=== PATIENT | female | born 1970 | race Caucasian/White ===

== ENCOUNTER → 2017-01-19 | Outpatient (CLI) | payer BC ==
--- NOTE | 2017-01-19 14:44 | MAMMOGRAPHY REPORT ---
UNILATERAL RIGHT DIGITAL DIAGNOSTIC MAMMOGRAM TOMOSYNTHESIS WITH CAD AND TARGETED RIGHT ULTRASOUND: CLINICAL HISTORY: Status post aspiration of a right 2:30 breast cyst July 2016, here for short in terval follow-up. The patient also reports that she felt a new possible lump in the right breast las t night during a clinical breast exam. TECHNIQUE: Breast tomosynthesis in addition to standard 2D mammography was performed. Current study was also evaluated with a Computer Aided Detection (CAD) system. Right CC and MLO 2-D and tomosynthe sis images were obtained. COMPARISON: Comparison is made to exams dated: 07/21/2016 mammogram, 07/11/2016 mammogram, 07/11/2016 ultrasound, 07/02/2015 mammogram, 05/14/2013 mammogram, and 01/13/2016 ultrasound - [facility]. BREAST COMPOSITION: The tissue of the right breast is heterogeneously dense, which may obscure small masses. FINDINGS: A triangle marker sanchez the site of the palpable lump in the right upper outer quadrant. No suspicious masses or other suspicious mammographic abnormalities are noted in this region. There is an oval, gently lobulated circumscribed 6.6 mm mass seen within the right upper inner quadrant; th is was previously aspirated to completion July 2016 and was shown to represent a cyst. Given the visualization on today's exam, it is consistent with reaccumulation of the cyst. The mass appears s lightly smaller in size compared to the 07/11/2016 pre-aspiration exam where the mass measured 8.5 mm . The remainder of the right breast is stable compared to prior exams, without suspicious masses, ca lcifications, or areas of architectural distortion noted. Targeted ultrasound was performed of the area of the palpable lump pointed out by the patient, in the right breast at 9:30, approximately 2 cm from the nipple. No suspicious masses or other suspicious sonographic abnormalities are evident. In the region of the palpable lump there is a small round cir cumscribed hypoechoic 3 x 3 x 3 mm mass, which is likely incidentally noted. Another round hypoechoi c circumscribed 2 x 2 mm mass is seen within the right breast at 10:00, 3 cm from the nipple. Adjace nt to this is another oval hypoechoic 4 x 2 mm mass. These are probably benign and likely represent complicated cysts. Targeted ultrasound was performed of the area of the previously aspirated cyst. In the right breast at 2:30, 4 cm from the nipple, there is a hypoechoic lobulated 5 x 4 x 4 mm mass. This previously measured 8 x 6 x 4 mm on the June 2016 pre-aspiration exam and is likely smalle r in size. This correlates with the mammographic mass. Given that it aspirated and given the benign morphology, it is probably benign and likely represents a cyst. IMPRESSION: ACR-BI-RADS CATEGORY 3: PROBABLY BENIGN, TARGETED ULTRASOUND ACR-BI-RADS CATEGORY 3: PRO BABLY BENIGN 1. No suspicious mammographic or sonographic abnormalities at the site of the palpable lump in the r ight breast at 9:30. A few small incidental hypoechoic circumscribed masses are seen within the righ t 9:30 to 10:00 breast on ultrasound, which are probably benign and likely represent complicated cyst s. Recommend follow-up diagnostic tomosynthesis mammograms of the right breast and ultrasound in 6 m ont to confirm stability. Routine mammography of the left breast will be due at that time. 2. The previously aspirated mass in the right breast at 2:30 is evident on the current exam, consist ent with cyst reaccumulation. This can be reevaluated at the time of the short interval follow-up. The patient has been verbally notified of the results. Approximately 10% of breast cancers are not detected with mammography. A negative mammographic report should not delay biopsy if a clinically suggestive mass is present. Maria Luz Bui M.D. ah/:01/19/2017 09:35:50 Set Up Machinist: Brenda Cruz RT(R)(M), [facility] letter sent: Follow Up Recommended 3 BI-RADS Code: ACR-BI-RADS Category 3: Probably Benign Ultrasound BI-RADS: ACR-BI-RADS Category 3: Pr obably Benign
== END | disposition home or self-care (01) ==
LOC: C.MAMM 07:59
PROVIDERS: ATTEND Obstetrics & Gynecology
DX: N63 Unspecified lump in breast (principal)

== ENCOUNTER → 2017-05-31 | Outpatient (CLI) | payer BC | END | disposition home or self-care (01) | LOC: C.PAPS 14:18 | PROVIDERS: ATTEND Obstetrics & Gynecology | DX: Z01.411 Encounter for gynecological examination (general) (routine) with abnormal findings (principal); R87.610 Atypical squamous cells of undetermined significance on cytologic smear of cervix (ASC-US) ==

== ENCOUNTER → 2017-07-21 | Outpatient (CLI) | payer BC ==
--- NOTE | 2017-07-21 13:38 | MAMMOGRAPHY REPORT ---
BILATERAL DIGITAL DIAGNOSTIC MAMMOGRAM TOMOSYNTHESIS WITH CAD AND TARGETED RIGHT ULTRASOUND: 7 CLINICAL HISTORY: Six-month follow-up of right breast masses. The patient reports no current complai nts. TECHNIQUE: Breast tomosynthesis in addition to standard 2D mammography was performed. Current study was also evaluated with a Computer Aided Detection (CAD) system. Bilateral CC and MLO 2-D and tomosy nthesis images were obtained. COMPARISON: Comparison is made to exams dated: 01/19/2017 ultrasound, 01/19/2017 mammogram, 07/21/2016 ma mmogram, 07/11/2016 mammogram, 07/11/2016 ultrasound, and 07/02/2015 mammogram - [facility]. BREAST COMPOSITION: The tissue of both breasts is heterogeneously dense, which may obscure small mas ses. FINDINGS: There are no suspicious masses, calcifications, or areas of architectural distortion seen w ithin either breast. The previously seen small circumscribed mass within the right medial breast on the cc view is decreased in size mammographically; this was previously aspirated confirming a cystic nature although it did reaccumulate after aspiration. Small bilateral benign-appearing masses are ag ain noted; findings are considered benign given the multiplicity and bilaterality and likely represen t small cysts. Targeted ultrasound was performed of the area of the previously seen right breast masses for which fo llow-up was recommended. In the right breast at 2:30, 4 cm from the nipple, there is a hypoechoic ma ss which is visually decreased in size compared to the January 2017 exam, currently measuring 4 x 3 x 4 mm, previously measuring 4 x 5 x 4 mm. This also corresponds with the mammographic mass which is dec reased in size. Findings are benign given the interval decrease in size and compatible with a benign cyst. In the right breast at 9:30, 2 cm from the nipple, again noted is a round nearly anechoic cir cumscribed benign appearing mass which measures 3 x 3 x 3 mm and is not significantly changed and lik kyle represents a complicated cyst. An oval anechoic benign 4 mm simple cyst seen within the right br east at 9:00, 2 cm from the nipple. A lobulated anechoic benign cyst measuring 2 x 4 mm is also seen within the right breast at 10:00, 3 cm from the nipple. In the right breast at 10:00, approximately 4 cm from the nipple, there is a round circumscribed benign-appearing 2 x 2 mm mass which is unchang ed. Adjacent to this is an oval hypoechoic circumscribed benign-appearing 4 x 4 mm mass which is also unchanged. An anechoic benign cyst with a thin internal septation measuring 3 x 4 mm is also seen w ithin the right breast at 10:00, 5 cm from the nipple. Adjacent to this is an oval anechoic circumsc ribed benign simple cyst measuring 2 mm. Given the multiplicity of the findings and given the circum scribed benign morphology, the masses are considered benign and likely represent cysts. IMPRESSION: ACR BI-RADS CATEGORY 2: BENIGN, TARGETED ULTRASOUND ACR BI-RADS CATEGORY 2: BENIGN Small benign-appearing right breast masses are stable compared to the prior exam, and are considered benign and likely represent cysts. There is no mammographic or targeted sonographic evidence of vish gnancy. A 1 year screening mammogram is recommended. The patient has been verbally notified of the r esults. Approximately 10% of breast cancers are not detected with mammography. A negative mammographic report should not delay biopsy if a clinically suggestive mass is present. Maria Luz Bui M.D. ah/:07/21/2017 08:31:34 Knot Borer: Nithya ZAYAS(Nadia)(M), [facility] letter sent: Normal 1/2 BI-RADS Code: ACR BI-RADS Category 2: Benign Ultrasound BI-RADS: ACR BI-RADS Category 2: Benign
== END | disposition home or self-care (01) ==
LOC: C.MAMM 07:56
PROVIDERS: ATTEND Obstetrics & Gynecology
DX: N63.0 Unspecified lump in unspecified breast (principal)

== ENCOUNTER → 2018-01-01 | Outpatient (CLI) | payer OTHER | END | disposition home or self-care (01) | LOC: C.PATHSPEC 17:36 | PROVIDERS: ATTEND Obstetrics & Gynecology | DX: N92.3 Ovulation bleeding (principal) ==

== ENCOUNTER 2022-10-06 22:43 | Observation (INO) ==
[2022-10-06] MEDS ORDERED: fentaNYL citrate 100 MCG/2 ML VIAL IV STA (23:02)
[2022-10-06] MEDS ORDERED: SODIUM CHLORIDE 0.9% 1000ML 1,000 ML IV ONE (23:02)
[2022-10-06] MEDS ORDERED: ONDANSETRON INJ 2 MG/ML 2 ML VIAL IV STA (23:02)
--- NOTE | 2022-10-06 23:09 | Emergency Department Note ---
History of Present Illness General Chief complaint: Chest Pain Stated complaint: CHEST PAIN,ABDOMINAL PAIN Time Seen by Provider: 10/06/22 22:52 History of Present Illness Maximum Pain Intensity: 9 51-year-old female presents emergency department at 7 PM she had sudden onset of right upper quadrant abdominal pain that radiated across her abdomen into her back. Patient is a diabetic. Patient denies nausea vomiting denies substernal chest pressure or shortness of breath. Patient denies diarrhea. There are no other mitigating or alleviating factors. Patient states that the pain is moderate located in the midepigastrium and right upper quadrant. Home Medications Medication Instructions Recorded Confirmed Type glycopyrrolate 1 mg tablet 1 mg PO QAM 08/19/19 10/07/22 History albuterol sulfate 90 mcg/actuation 1 puff inhalation QID PRN Wheezing 01/28/21 10/07/22 History aerosol inhaler atorvastatin 10 mg tablet 10 mg PO HS 02/18/22 10/07/22 History losartan 25 mg tablet 25 mg PO HS 02/18/22 10/07/22 History metformin 500 mg tablet 500 mg PO BIDM 10/06/22 10/07/22 History famotidine 20 mg tablet 20 mg PO AMHS 10/07/22 10/07/22 History Allergies Allergy/AdvReac Type Severity Reaction Status Date / Time bee venom protein (honey bee) Allergy Severe Anaphylaxis Verified 10/07/22 02:02 adhesive Allergy Intermediate REDNESS,ITC Verified 10/07/22 02:02 ENRRIQUE Sulfa (Sulfonamide Allergy Intermediate HIVES Verified 10/07/22 02:02 Antibiotics) Past Med/Surg History Medical History Asthma MILD> RARE INH USE Dysplastic nevus Intermenstrual spotting Menorrhagia Obesity Recurrent nevus of back Surgical History History of endometrial ablation S/P skin biopsy BENIGN Family History Father Hypertension Mother Diabetes Grandmother (Paternal) Diabetes Other Asthma Social History Smoking Status: Never smoker Second Hand Exposure: No; Hx Alcohol Use: Yes Alcohol type: hard liquor Hx Substance Use: No Preferred Language: Kazakh Communication Ability: Effective Hotel Assistant Manager Required: No Beliefs That Will Affect Care: None Current Living Situation: Spouse Feels Safe at Home: Yes Assistive Devices: Contacts and Glasses Review of Systems A total of 10 systems reviewed and were otherwise negative Constitutional: no fever Physical Exam Vital Signs Vital Signs - 24 hr 10/06/22 22:46 10/06/22 23:02 Temperature 36 C L Temperature Source Temporal Artery Scan Pulse Rate 73 74 Respiratory Rate 18 Respiratory Effort / Characteristics Non-Labored Spontaneous Respiratory Depth Normal Blood Pressure 180/109 H Blood Pressure Mean 132 Blood Pressure Position Sitting Pulse Oximetry 97 Oxygen Delivery Method Room Air Sepsis Recent Fever Within 48 Hours No Sepsis New/Unexplained Change in Mental Status No Sepsis Action Taken by Nursing No Action Required GENERAL: Patient is awake alert in no acute distress patient is resting comfortably and showing no signs of anxiety EYES: The conjunctivae are clear. The pupils are round and reactive. EARS, NOSE, MOUTH AND THROAT: The nose is without any evidence of any deformity. Mucous membranes are moist. Tongue is midline. NECK: The neck is nontender and supple. RESPIRATORY: Normal respiratory effort is noted there is no evidence of wheezing rhonchi or rales CARDIOVASCULAR: Regular rate and rhythm noted there no murmurs rubs or gallops normal S1 normal S2. GASTROINTESTINAL: The abdomen is soft. Abdomen is tender in right upper quadrant midepigastrium there is no rebound rigidity guarding there is no abnormal aortic pulsations or masses PELVIS: The Pelvis is stable. No tenderness to palpation is noted. BACK: No midline tenderness or or step-off noted range of motion in flexion extension as well as rotation no signs of muscle spasm noted MUSCULOSKELETAL/EXTREMITIES: There is no evidence of gross deformity full range of motion is noted in the hips and shoulders. SKIN: There is no obvious evidence of any rash. There are no petechiae, pallor or cyanosis noted. NEUROLOGIC: Patient is awake alert and oriented x3 strength is symmetric Course Reevaluation(s) Reevaluation #1: Complains of some upper quadrant abdominal pain Time: 02:00 Consultations Consultation #1: Case was discussed with Wesley Hannon from the surgical service Time: 02:00 Consultation #2: Case discussed with Dr. Villegas for admission Administered Medications Discontinued Medications Fentanyl Citrate (Fentanyl Citrate 100 Mcg/2 Ml Vial) 25 mcg IV NOW STA Stop: 10/06/22 23:03 Last Admin: 10/06/22 23:14 Dose: 25 mcg Documented By: MYRNA Sodium Chloride (Nss 1000ml) 1,000 mls @ 999 mls/hr IV .Q1H1M ONE Stop: 10/07/22 00:02 Last Infusion: 10/07/22 00:36 Dose: 999 mls/hr Documented By: Admin: 10/06/22 23:14 Dose: 999 mls/hr Documented By: MYRNA Ondansetron HCl (Ondansetron Inj 2 Mg/Ml 2 Ml Vial) 4 mg IV NOW STA Stop: 10/06/22 23:03 Last Admin: 10/06/22 23:14 Dose: 4 mg Documented By: MYRNA Medical Decision Making Medical Records Attestation: I reviewed the patient's medical records. Home Medications Current Medication List: was personally reviewed by me Laboratory Data Attestation: I reviewed the patient's lab results. AST is 66 10/06/22 23:00 10/06/22 23:00 Lab Results 10/06/22 10/06/22 10/06/22 Range/Units 23:00 23:00 23:00 WBC 9.15 (4.8-10.8) K/ul RBC 5.64 H (4.20-5.40) M/uL Hgb 16.1 H (12.0-16.0) g/dl Hct 46.8 (37.0-47.0) % MCV 83.0 (80.0-100.0) fL MCH 28.5 (25.0-34.0) pg MCHC 34.4 (32.0-36.0) g/dL RDW Std Deviation 38.4 (36.4-46.3) fL RDW Coeff of Nela 12.6 (11.5-14.5) % Plt Count 324 (130-400) K/uL MPV 9.9 (9.4-12.4) fL Immature Gran % (Auto) 0.1 % Neut % (Auto) 45.9 % Lymph % (Auto) 41.4 % [place] % (Auto) 9.0 % Eos % (Auto) 3.2 % Baso % (Auto) 0.4 % Neut # (Auto) 4.20 (1.40-6.50) K/uL Lymph # (Auto) 3.79 H (1.2-3.4) K/uL [place] # (Auto) 0.82 H (0.11-0.59) K/uL Eos # (Auto) 0.29 (0-0.50) K/uL Baso # (Auto) 0.04 (0-0.2) K/uL Immature Gran # (Auto) 0.01 (0.01-0.20) K/uL PT 10.2 (9.0-12.0) Seconds INR 1.0 (0.9-1.1) APTT 27.9 (21.0-31.0) Seconds PTT Ratio 1.0 Sodium 138 (136-145) mmol/L Potassium 3.9 (3.5-5.1) mmol/L Chloride 100 (98-107) mmol/L Carbon Dioxide 29 (21-32) mmol/L Anion Gap 9 (3-11) BUN 22 (6-23) mg/dl Creatinine 0.91 (0.6-1.2) mg/dl Est Cr Clr Drug Dosing 72.2 ml/min Est GFR ( Amer) 84.7 ml/min Est GFR (Non-Af Amer) 73.1 ml/min BUN/Creatinine Ratio 24.2 H (10-20) Glucose 97 (70-99(Fasting)) mg/dl Calcium 9.8 (8.5-10.1) mg/dl Total Bilirubin 1.1 H (0.2-1.0) mg/dl AST 66 H (13-39) U/L ALT 48 (7-52) U/L Alkaline Phosphatase 78 (34-104) U/L Troponin I High Sens 4.1 (0-14) pg/ml Total Protein 8.4 H (6.0-8.3) gm/dl Albumin 4.9 (3.4-5.0) gm/dl Globulin 3.5 (2.5-4.0) gm/dl Albumin/Globulin Ratio 1.4 (0.9-2) Lipase 48 (11-82) U/L Imaging Data Attestation: I personally reviewed and interpreted this imaging study as follows: My Impression: Chest x-ray interpreted by me negative for infiltrate normal mediastinum no pneumothorax Ultrasound reviewed by me and appreciate radiologist interpretation Radiologist's Impression: * SYDNEY DOBBINS (Female) : 70 Status: ER Date: 10/07/22 00:11 Room #: History: ruq and epigastric pain, chest pain, middle back pain Slices: 44 Priors: Tech: Jeannette Albarran @ [phone] Exams: US RUQ Contrast: Accession Numbers: [id number] Referring Physician: REFERRED SELF Preliminary Findings Only See Final Report For Complete Findings US RUQ: No visible gallstones. Thickened gallbladder wall (3.7 mm) and trace pericholecystic fluid. Unable to assess for sonographic Acosta's sign due to medicated state. Normal common duct, 4 mm. Hepatomegaly and coarse liver echotexture, probably steatosis. 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 Unremarkable visualized pancreas. Radiologist: Celena Crow MD Study ready at 00:15 and initial results transmitted at 01:472:05 AM10 days left ECG Data Attestation: I personally reviewed and interpreted this ECG as follows: Additional Comments: EKG interpreted by me normal sinus rhythm rate of 65 poor R wave progression the precordium no obvious ST segment elevation or depression left axis deviation is present MDM Narrative Medical decision making differential diagnosis includes miliary colic cholecystitis cholelithiasis pancreatitis acute coronary syndrome Plan is to check labs, EKG, ultrasound right upper quadrant, give IV pain medicine Impression & Plan Abdominal pain, acute, right upper quadrant, Acalculous cholecystitis Discharge Plan Visit Data Chief Complaint: Chest Pain Stated Complaint: CHEST PAIN,ABDOMINAL PAIN ED Provider: Camron Ortega Discharge Problem: Abdominal pain, acute, right upper quadrant, Acalculous cholecystitis Patient Disposition: Admitted As Inpatient Forms Stand Alone Forms: My [facility] Prescriptions Prescriptions: No Action glycopyrrolate 1 mg tablet 1 mg PO QAM losartan 25 mg tablet 25 mg PO HS atorvastatin 10 mg tablet 10 mg PO HS albuterol sulfate 90 mcg/actuation Hfa Aerosol Inhaler 1 puff INHALATION QID PRN (Reason: Wheezing) metformin 500 mg tablet 500 mg PO BIDM famotidine 20 mg Tablet 20 mg PO AMHS Referrals Referrals: Cori Reaves MD [Primary Care Provider] -
[2022-10-06 23:32] LABS: Basophils # (auto) 0.04 K/uL (0-0.2); Basophils % (auto) 0.4 %; Eosinophils # (auto) 0.29 K/uL (0-0.50); Eosinophils % (auto) 3.2 %; Hematocrit (blood only) 46.8 % (37.0-47.0); Hemoglobin 16.1 g/dl (12.0-16.0); Immature Granulocytes # (auto) 0.01 K/uL (0.01-0.20); Immature Granulocytes % (auto) 0.1 %; Lymphocytes # (auto) 3.79 K/uL (1.2-3.4); Lymphocytes % (auto) 41.4 %; Mean Corpuscular Hemoglobin 28.5 pg (25.0-34.0); Mean Corpuscular Hgb Conc 34.4 g/dL (32.0-36.0); Mean Platelet Volume 9.9 fL (9.4-12.4); Monocytes # (auto) 0.82 K/uL (0.11-0.59); Neutrophils % (auto) 45.9 %; Platelet Count 324 K/uL (130-400); RDW Coefficient of Variation 12.6 % (11.5-14.5); RDW Standard Deviation 38.4 fL (36.4-46.3); Red Blood Count 5.64 M/uL (4.20-5.40); White Blood Count 9.15 K/ul (4.8-10.8)
[2022-10-06 23:46] LABS: Albumin Globulin Ratio 1.4 (0.9-2); Albumin Level 4.9 gm/dl (3.4-5.0); BUN Creatinine Ratio 24.2 (10-20); Bilirubin,Total 1.1 mg/dl (0.2-1.0); Calcium 9.8 mg/dl (8.5-10.1); Creatinine Clr Calc Pharmacy 72.2 ml/min; Est GFR (African American) 84.7 ml/min; Est GFR (Non-African American) 73.1 ml/min; Globulin 3.5 gm/dl (2.5-4.0); Potassium 3.9 mmol/L (3.5-5.1); Total Protein 8.4 gm/dl (6.0-8.3)
[2022-10-06 23:53] LABS: Troponin I High Sensitivity 4.1 pg/ml (0-14)
[2022-10-06 23:57] LABS: Partial Thromboplastin Time 27.9 Seconds (21.0-31.0); Prothrombin Time 10.2 Seconds (9.0-12.0)
--- NOTE | 2022-10-07 02:11 | History & Physical Report ---
Date of Service October 07, 2022 Assessment & Plan (1) Abdominal pain, acute, right upper quadrant: Plan: 51-year-old female with history of hypertension, hyperlipidemia, diabetes presenting with acute onset right upper quadrant pain following dinner this evening. No fever, chills, nausea, vomiting. Work-up thus far significant for mild elevation of total bilirubin = 1.1, mild elevation of AST = 66. Liver ultrasound as above with no visible gallstones. Thickened gallbladder wall at 3.7 mm and trace pericholecystic fluid. Common bile duct is normal measuring 4 mm. Troponin = negative at 4.1, EKG with no acute ischemic changes Differential diagnosis to include reflux, acalculous cholecystitis. Case has been discussed with surgical team. Admit to medical Keep patient n.p.o. Check HIDA scan in the morning Repeat LFTs in the morning We will hold off on additional pain medication for now as to not interfere with results of HIDA scan Colace and MiraLAX as needed for constipation Zofran as needed for nausea Empiric Zosyn 3.375 g IV every 8 hours Appreciate general surgery consultation Of note, patient is planning a trip to [place] with her family. They plan to leave next 10/12/2022. (2) Hypertension: Plan: Blood pressure elevated upon arrival in setting of acute pain. Now improved to 123/88. We will hold losartan 25 mg p.o. nightly in case of surgical intervention Continue to monitor blood pressure (3) Hyperlipidemia: Plan: Chronic. Stable. Continue atorvastatin 10 mg p.o. nightly (4) Diabetes: Plan: Patient on metformin 500 mg p.o. twice daily. Insulin sliding scale Goal blood sugar 110-140 Hold metformin for now F/E/NLR at 100 mL/h x 2 L, electrolytes within normal limitscontinue to monitor and replete as needed, n.p.o. for now Ppx:low risk for VTE, will hold on chemoprophylaxis for now. SCDs to bilateral lower extremities. Patient on Pepcid 20 mg p.o. twice dailywill change to IV for now Codefull per discussion with patient Dispositionadmit to medical History of Present Illness Chief Complaint: Right upper quadrant abdominal pain Primary Care Provider: Cori Reaves MD Katerine Avendaño is a pleasant 51-year-old female with history of hypertension, hyperlipidemia, diabetes and well-controlled asthma presenting with acute onset of right upper quadrant pain. Patient had just finished having pizza for dinner around 1900 when she developed sudden onset of right upper quadrant pain with radiation in the epigastrium and through to the back, bandlike across her abdomen. She reports the pain feeling like gas but more severe. She states she was unable to get comfortable. Tried to use a foam roller with no improvement. She did not have nausea or vomiting. No fevers, chills, rigors. No cough or shortness of breath. No history of prior right upper quadrant pain. Patient did have some loose stools earlier in the day but they have resolved. No sick contacts. No family members with similar symptoms In the ER she is afebrile, hypertensive at 180/109 otherwise hemodynamically stable. No respiratory distress. Adequate oxygenation on room air. During my encounter patient's abdominal pain resolved after receiving 25 mcg of IV fentanyl. Patient being seen by surgical team at bedside. ER course: Fentanyl 25 mcg IV Zofran 4 mg IV Allergies Allergy/AdvReac Type Severity Reaction Status Date / Time bee venom protein (honey bee) Allergy Severe Anaphylaxis Verified 10/07/22 02:02 adhesive Allergy Intermediate REDNESS,ITC Verified 10/07/22 02:02 ENRRIQUE Sulfa (Sulfonamide Allergy Intermediate HIVES Verified 10/07/22 02:02 Antibiotics) Home Medications Medication Instructions Recorded Confirmed Type glycopyrrolate 1 mg tablet 1 mg PO QAM 08/19/19 10/07/22 History albuterol sulfate 90 mcg/actuation 1 puff inhalation QID PRN Wheezing 01/28/21 10/07/22 History aerosol inhaler atorvastatin 10 mg tablet 10 mg PO HS 02/18/22 10/07/22 History losartan 25 mg tablet 25 mg PO HS 02/18/22 10/07/22 History metformin 500 mg tablet 500 mg PO BIDM 10/06/22 10/07/22 History famotidine 20 mg tablet 20 mg PO AMHS 10/07/22 10/07/22 History Past Med/Surg History Medical History (Updated 10/07/22 @ 02:48 by Kathy Villegas DO) Asthma MILD> RARE INH USE Diabetes Dysplastic nevus Hyperlipidemia Hypertension Intermenstrual spotting Menorrhagia Obesity Recurrent nevus of back Surgical History History of endometrial ablation S/P skin biopsy BENIGN Family History Father Hypertension Mother Diabetes Grandmother (Paternal) Diabetes Other Asthma Social History Smoking Status: Never smoker Second Hand Exposure: No; Hx Alcohol Use: Yes Alcohol type: hard liquor Hx Substance Use: No Preferred Language: Estonian Communication Ability: Effective 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 Beliefs That Will Affect Care: None Current Living Situation: Spouse Feels Safe at Home: Yes Assistive Devices: Contacts and Glasses Review of Systems Review of Systems: All systems reviewed & are unremarkable except as noted in HPI & below Physical Exam Physical Exam: General: patient resting comfortably, NAD, non-toxic in appearance, AA&O x 4 Skin: warm, dry, intact, no rashes or lesions HEENT: NC/AT, PERRL, EOMI, anicteric sclera, conjunctiva without injection, external ear normal to inspection and nontender, nares patent, moist mucus membranes, dentition intact, no oropharyngeal lesions, neck supple, trachea midline, no LAD, no thyromegaly, no JVD Heart: +S1/S2, regular, no m/r/g Lungs: equal air entry bilaterally, no rales/rhonchi/wheezes Abd: +BS, soft, NT/ND, no masses/organomegaly/ascites, no right upper quadrant pain with deep palpation Ext: warm, 2+ pulses in UE/LE bilaterally, no clubbing/cyanosis or edema Neuro: nonfocal, patient AA&O x 4, speech intact, no facial droop, moving all extremities on command with equal strength 5/5 Results & Data Results & Data ([place]) Vital Signs (Past 12 Hours) Vital Signs Temp Pulse Resp BP Pulse Ox O2 Del Method 10/06/22 23:02 74 10/06/22 22:46 36 C L 73 18 180/109 H 97 Room Air Laboratory Results Laboratory Results WBC 9.15 K/ul (4.8-10.8) 10/06/22 23:00 RBC 5.64 M/uL (4.20-5.40) H 10/06/22 23:00 Hgb 16.1 g/dl (12.0-16.0) H 10/06/22 23:00 Hct 46.8 % (37.0-47.0) 10/06/22 23: MCV 83.0 fL (80.0-100.0) 10/06/22 23: MCH 28.5 pg (25.0-34.0) 10/06/22 23: MCHC 34.4 g/dL (32.0-36.0) 10/06/22: RDW Std Deviation 38.4 fL (36.4-46.3) 10/06/22: RDW Coeff of Nela 12.6 % (11.5-14.5) 10/06/22: Plt Count 324 K/uL (130-400) 10/06/22 23: MPV 9.9 fL (9.4-12.4) 10/06/22 23: Immature Gran % (Auto) 0.1 % 10/06/22: Neut % (Auto) 45.9 % 10/06/22:00 Lymph % (Auto) 41.4 % 10/06/22:00 Cedar % (Auto) 9.0 % 10/06/22 23:00 Eos % (Auto) 3.2 % 10/06/22: Baso % (Auto) 0.4 % 10/06/22:00 Neut # (Auto) 4.20 K/uL (1.40-6.50) 10/06/22: Lymph # (Auto) 3.79 K/uL (1.2-3.4) H 10/06/22 23:00 Cedar # (Auto) 0.82 K/uL (0.11-0.59) H 10/06/22 23:00 Eos # (Auto) 0.29 K/uL (0-0.50) 10/06/22 23: Baso # (Auto) 0.04 K/uL (0-0.2) 10/06/22 23: Immature Gran # (Auto) 0.01 K/uL (0.01-0.20) 10/06/22 23: PT 10.2 Seconds (9.0-12.0) 10/06/22 23:00 INR 1.0 (0.9-1.1) 10/06/22 23:00 APTT 27.9 Seconds (21.0-31.0) 10/06/22 23:00 PTT Ratio 1.0 10/06/22 23:00 Sodium 138 mmol/L (136-145) 10/06/22 23:00 Potassium 3.9 mmol/L (3.5-5.1) 10/06/22 23:00 Chloride 100 mmol/L (98-107) 10/06/22 23:00 Carbon Dioxide 29 mmol/L (21-32) 10/06/22 23:00 Anion Gap 9 (3-11) 10/06/22 23:00 BUN 22 mg/dl (6-23) 10/06/22 23:00 Creatinine 0.91 mg/dl (0.6-1.2) 10/06/22 23:00 Est Cr Clr Drug Dosing 72.2 ml/min 10/06/22 23:00 Est GFR ( Amer) 84.7 ml/min 10/06/22 23:00 Est GFR (Non-Af Amer) 73.1 ml/min 10/06/22 23:00 BUN/Creatinine Ratio 24.2 (10-20) H 10/06/22 23:00 Glucose 97 mg/dl (70-99(Fasting)) 10/06/22 23:00 Calcium 9.8 mg/dl (8.5-10.1) 10/06/22 23:00 Total Bilirubin 1.1 mg/dl (0.2-1.0) H 10/06/22 23:00 AST 66 U/L (13-39) H 10/06/22 23:00 ALT 48 U/L (7-52) 10/06/22 23:00 Alkaline Phosphatase 78 U/L (34-104) 10/06/22 23:00 Troponin I High Sens 4.1 pg/ml (0-14) 10/06/22 23:00 Total Protein 8.4 gm/dl (6.0-8.3) H 10/06/22 23:00 Albumin 4.9 gm/dl (3.4-5.0) 10/06/22 23:00 Globulin 3.5 gm/dl (2.5-4.0) 10/06/22 23:00 Albumin/Globulin Ratio 1.4 (0.9-2) 10/06/22 23:00 Lipase 48 U/L (11-82) 10/06/22 23:00 Diagnostic Findings Right upper quadrant ultrasound: Per STAT rad No visible gallstones. Thickened gallbladder wall (3.7 mm) and trace pericholecystic fluid. Unable to assess for sonographic Acosta sign due to medication state. Normal common bile duct, 4 mm. Hepatomegaly and coarsened liver echotexture probably steatosis. 1.0 cm probable angiomyolipoma lower pole of the right kidney. Unremarkable visualized pancreas. Chest x-rayper my interpretation, trachea is midline and air-filled, normal cardiac shadow, normal lungs with no obvious infiltrate, edema or pneumothorax ECG Additional Comments: EKGper my interpretationstudy reveals normal sinus rhythm at 65 bpm, normal axis, WV = 146, QRS = 74, QTc = 409, poor R wave progression, no acute ischemic changes. No prior studies available for comparison PG Care Time/CCT Total # of Minutes Spent Total Time Spent with Patient: Total time spent is greater than 50% in coordination of care (as documented) at patient's floor/unit and/or counseling patient: Coding Level of Care Code 67998 INT INP/OBS CARE 2/55MIN Diagnoses Abdominal pain, acute, right upper quadrant R10.11 Hypertension I10 Hyperlipidemia E78.5 Diabetes E11.9
--- NOTE | 2022-10-07 02:39 | Surgery Consultation ---
Date of Consultation October 07, 2022 Assessment & Plan (1) Abdominal pain, acute, right upper quadrant: I discussed with the treating emergency room physician and the patient is being admitted to the hospital at this time. We recommend proceeding as follows: Is unclear if the patient is suffering from cholecystitis as she only has borderline gallbladder wall thickening and trace pericholecystic fluid with no gallstones and no leukocytosis. At the time of my interview she was completely pain-free. It is possible that perhaps the patient had some microlithiasis or biliary sludge that passed causing her symptomatology. As it is unclear if the patient is suffering cholecystitis we will keep her n. p.o. for the present time and we will order a HIDA scan for further delineation of biliary pathology We will repeat laboratories in the morning We will hydrate her with IV fluids As the patient is pain-free right now we will not order any narcotic pain medications that may alter the results of her HIDA scan Antiemetics will be provided Additional recommendations be forthcoming based on repeat labs and her HIDA scan. My attending physician Dr. Bella will evaluate the patient and determine if cholecystectomy is indicated based on ensuing test studies. Supervising Physician Co-Signing Physician Notes I personally saw and evaluate the patient with Tu Hannon PA-C and agree with the assessment and plan. 51-year-old female with right upper quadrant pain, questionable acute cholecystitis on imaging In the absence of gallstones, unlikely cholecystitis She is being admitted to medicine, recommend HIDA scan and keeping n.p.o. until this is performed Follow-up results of HIDA scan History of Present Illness Reason for Consultation: Abdominal pain History of Present Illness This is a 51-year-old female who presented [facility] emergency department secondary to pain in her abdomen that began several hours after eating her evening meal yesterday. She notes that the pain is located primarily right upper quadrant and somewhat in the epigastric area with r adiation into her chest. She notes that she has never had this pain before. I specifically asked patient if she experienced any postprandial pain in the past which she denies. She has never had any prior abdominal surgeries. With her current pain she does not note any additional provocative factors she notes that the pain was palliated with analgesics that were administered in the emergency department. She denies any nausea or vomiting. She denies any fevers, shakes, or chills. She notes that she has never had any prior abdominal surgeries. In the emergency department she had labs and imaging which independent reviewed. Gallbladder ultrasound did not show any gallstones and she had some borderline thickness of the gallbladder wall at 3.7 mm. There is trace pericholecystic fluid. The biliary ducts were not dilated. Chest x-ray showed no evidence of pneumonia and an EKG was performed that did not have findings consistent indicative of acute ischemia. Labs include a CBC were white blood cell count platelet count were normal. Her hemoglobin was 16.1 with a normal hematocrit. Coagulation studies were normal chemistry profile showed sodium, potassium, BUN, creatinine were normal. Patient's LFTs were reviewed and there is a slight elevation of her total bilirubin at 1.1 and a slight elevation of the AST at 66. Her ALT and alkaline phosphatase were nonelevated. Her lipase was nonelevated. A COVID test is pending. At the time of my interview the patient was completely pain-free. (She received 25 mcg of fentanyl in the emergency department). She was in no distress at the time of my interview. Allergies Allergy/AdvReac Type Severity Reaction Status Date / Time bee venom protein (honey bee) Allergy Severe Anaphylaxis Verified 10/07/22 02:02 adhesive Allergy Intermediate REDNESS,ITC Verified 10/07/22 02:02 ENRRIQUE Sulfa (Sulfonamide Allergy Intermediate HIVES Verified 10/07/22 02:02 Antibiotics) Home Medications Medication Instructions Recorded Confirmed Type glycopyrrolate 1 mg tablet 1 mg PO QAM 08/19/19 10/07/22 History albuterol sulfate 90 mcg/actuation 1 puff inhalation QID PRN Wheezing 01/28/21 10/07/22 History aerosol inhaler atorvastatin 10 mg tablet 10 mg PO HS 02/18/22 10/07/22 History losartan 25 mg tablet 25 mg PO HS 02/18/22 10/07/22 History metformin 500 mg tablet 500 mg PO BIDM 10/06/22 10/07/22 History famotidine 20 mg tablet 20 mg PO AMHS 10/07/22 10/07/22 History Patient History Medical History Asthma MILD> RARE INH USE Diabetes Dysplastic nevus Hyperlipidemia Hypertension Intermenstrual spotting Menorrhagia Obesity Recurrent nevus of back Surgical History History of endometrial ablation S/P skin biopsy BENIGN Family History Father Hypertension Mother Diabetes Grandmother (Paternal) Diabetes Other Asthma Social History Smoking Status: Never smoker Second Hand Exposure: Yes (grandfather smoked); Hx Alcohol Use: Yes Alcohol type: beer and hard liquor Hx Substance Use: No Preferred Language: South Korean Communication Ability: Effective 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 Beliefs That Will Affect Care: None Current Living Situation: Spouse and Family Current Living Situation Comment: hubs and daughter Feels Safe at Home: Yes Assistive Devices: Contacts Review of Systems Constitutional: no fever and no chills Eyes: no eye pain Ear, Nose, Mouth, Throat: no ear pain Respiratory: no cough and no dyspnea Cardiovascular: no chest pain Gastrointestinal: + abdominal pain; no nausea and no vomiting Genitourinary: no dysuria Integumentary: no rash Neurologic: no localized weakness Physical Exam Constitutional: WD/WN, vitals as above Eyes: + anicteric sclerae ENMT: Ears: no hearing impairment and no external ear abnormality Neck: trachea midline Respiratory: normal respiratory effort; no respiratory distress and no labored breathing Cardiovascular: Rate/Rhythm: regular rate and regular rhythm Gastrointestinal (Abdomen): Abdomen is soft, nonrigid, nondistended. There is no rebound tenderness or guarding. There is no pain noted with light or deep palpation in the right upper quadrant. Musculoskeletal: No calf tenderness Skin: no rashes Neurologic: moves all extremities Psychiatric: A+Ox3, euthymic affect Results & Data ([facility]) Vital Signs (Past 12 Hours) Vital Signs Temp Pulse Resp BP Pulse Ox O2 Del Method 10/06/22 23:02 74 10/06/22 22:46 36 C L 73 18 180/109 H 97 Room Air PG Care Time/CCT Total # of Minutes Spent Total Time Spent with Patient: Total time spent is greater than 50% in coordination of care (as documented) at patient's floor/unit and/or counseling patient: Coding Level of Care Code INP/OBS CONSULT LVL 5, 80 MIN Diagnoses Abdominal pain, acute, right upper quadrant R10.11
[2022-10-07] MEDS ORDERED: LACTATED RINGER'S 1,000 ML IV SCH (06:18)
[2022-10-07] MEDS ORDERED: GLUCOSE 40% GEL 15 GM TUBE PO PRN (06:18)
[2022-10-07] MEDS ORDERED: DEXTROSE 50% 50 ML SYRINGE IV PRN (06:18)
[2022-10-07] MEDS ORDERED: GLUCAGON FOR INJ 1 MG VIAL SQ PRN (06:18)
[2022-10-07] MEDS ORDERED: DOCUSATE SODIUM 100 MG CAP PO PRN (06:18)
[2022-10-07] MEDS ORDERED: GLUCOSE 10 TAB/TUBE PO PRN (06:18)
[2022-10-07] MEDS ORDERED: CARBOHYDRATES FOR HYPOGLYCEMIA PO PRN (06:18)
[2022-10-07] MEDS ORDERED: ACETAMINOPHEN 325 MG TAB PO PRN (06:18)
[2022-10-07] MEDS ORDERED: ONDANSETRON INJ 2 MG/ML 2 ML VIAL IV PRN (06:18)
[2022-10-07] MEDS ORDERED: POLYETHYLENE (MIRALAX) 17 GM PACK PO PRN (06:18)
[2022-10-07] MEDS ORDERED: PIPERACILLIN/TAZOBACTAM 4.5 GM in DEXTROSE 5% 100 ML IV ONE (06:30)
--- NOTE | 2022-10-07 07:28 | XRay Report ---
SINGLE VIEW CHEST CLINICAL HISTORY: Atypical chest pain. FINDINGS: An AP, portable, upright chest radiograph is obtained. No prior studies are available for c omparison at the time of dictation. The cardiomediastinal silhouette is unremarkable. The lungs and p leural spaces are clear noting mild bibasilar atelectasis. No pneumothorax is seen. The bony thorax i s grossly intact. IMPRESSION: No active disease in the chest. ACT 112: Negative or not required by law. Electronically signed by: Jackson Weinstein M.D. 10/07/2022 7:27 AM
[2022-10-07] MEDS ORDERED: INSULIN ASPART PER UNIT SC SCH (07:30)
--- NOTE | 2022-10-07 08:50 | Ultrasound Report ---
US liver CLINICAL HISTORY: ruq pain TECHNIQUE: Multiple real-time sonographic images of the right upper quadrant were obtained. Comparison: None available at the time of this dictation. FINDINGS: The liver is diffusely echogenic in appearance with poor ultrasound penetration, with normal contour, which is consistent with fatty infiltration. Fatty sparing is seen about the gallbladder. No focal m ass lesions are seen. No intrahepatic ductal dilatation is seen. The gallbladder is without evide nce stones however the wall appears thickened measuring up to 0.4 cm. Trace pericholecystic fluid is seen about the fundus. Acosta's sign cannot be assessed as the patient received pain medication. The common duct measures 0.4 cm in diameter at the level of the hepatic artery. The visualized portions of the pancreas appear normal. Right kidney measures 10.6 cm in length. No hydronephrosis is seen. There is a 1.0 cm echogenic mass compatible with angiomyolipoma. Trace free fluid is noted. IMPRESSION: Thickened gallbladder with pericholecystic fluid but without evidence of obstructive stone. Sonograph ic Acosta's sign cannot be assessed due to pain medication. Findings are equivocal for acute cholecys titis, clinical correlation is recommended. ACT 112: Negative or not required by law. Electronically signed by: Scott Gutiérrez M.D. 10/07/2022 8:49 AM
[2022-10-07] MEDS ORDERED: GLYCOPYRROLATE 1 MG TAB PO SCH (09:00)
[2022-10-07] MEDS ORDERED: FAMOTIDINE 20 MG in SYRINGE 3 ML IV SCH (09:00)
--- NOTE | 2022-10-07 10:34 | Nuclear Medicine Report ---
NUCLEAR HEPATOBILIARY SCAN CLINICAL HISTORY: Right upper quadrant abdominal pain. COMPARISON STUDY: Abdominal ultrasound dated 10/06/2022. TECHNIQUE: Dynamic images of the liver and anterior abdomen were obtained every 5 minutes for a total of 60 minutes following the IV administration of 5.36 mCi of technetium 99m Mebrofenin FINDINGS: The hepatobiliary scan shows prompt and homogeneous hepatic uptake. There is visualized act ivity within the intra and extrahepatic biliary tree at 10 minutes, and within the gallbladder at 20 minutes. There is normal biliary to bowel transit, with small bowel visualized by 40 minutes. IMPRESSION: Normal nuclear hepatobiliary scan. There is no scintigraphic evidence of cholecystitis. ACT 112: Negative or not required by law. Electronically signed by: Jackson Weinstein M.D. 10/07/2022 10:33 AM
--- NOTE | 2022-10-07 10:46 | Anesthesiology Consultation ---
Date of Service October 07, 2022 Assessment & Plan Chart Review Chart Review: Acceptable Risk for Surgery and Patient NOT seen in Pre Admission Testing History Surgery Operation Date: 10/07/22 09:30 Proposed Procedures p Laparoscopic Cholecystectomy versus Open Cholecystectomy - Tavon Bella DO Height/Weight Height: 4 ft 11.75 in Weight: 88.4 kg Allergies Allergy/AdvReac Type Severity Reaction Status Date / Time bee venom protein (honey bee) Allergy Severe Anaphylaxis Verified 10/07/22 02:02 adhesive Allergy Intermediate REDNESS,ITC Verified 10/07/22 02:02 ENRRIQUE Sulfa (Sulfonamide Allergy Intermediate HIVES Verified 10/07/22 02:02 Antibiotics) Medications Home Medications Medication Instructions Recorded Confirmed Last Taken glycopyrrolate 1 mg tablet 1 mg PO QAM 08/19/19 10/07/22 10/06/22 albuterol sulfate 90 mcg/actuation 1 puff inhalation QID PRN Wheezing 01/28/21 10/07/22 Unknown aerosol inhaler atorvastatin 10 mg tablet 10 mg PO HS 02/18/22 10/07/22 10/06/22 losartan 25 mg tablet 25 mg PO HS 02/18/22 10/07/22 10/06/22 metformin 500 mg tablet 500 mg PO BIDM 10/06/22 10/07/22 10/06/22 famotidine 20 mg tablet 20 mg PO AMHS 10/07/22 10/07/22 10/06/22 Active Medications Generic Name Dose Route Start Last Admin Trade Name Freq PRN Reason Stop Dose Admin Lactated Ringer's 1,000 mls @ 100 mls/hr 10/07/22 06:18 10/07/22 06:55 Lr IV 10/08/22 02:17 100 mls/hr .Q10H NALINI Administration Insulin Aspart 0 units 10/07/22 07:30 10/07/22 09:25 Insulin Aspart Per Unit SC 11/06/22 07:29 Not Given ACHS [facility] Past Medical History Medical History Asthma MILD> RARE INH USE Diabetes Dysplastic nevus Hyperlipidemia Hypertension Intermenstrual spotting Menorrhagia Obesity Recurrent nevus of back Past Family History Family History Father Hypertension Mother Diabetes Grandmother (Paternal) Diabetes Other Asthma Past Surgical History Surgical History History of endometrial ablation S/P skin biopsy BENIGN Social History Smoking Status: Never smoker Do You Dip or Chew Tobacco: No Hx Alcohol Use: Yes Alcohol type: beer and hard liquor alcohol intake frequency: holidays/special occasions only Hx Substance Use: No substance use type: does not use Physical Exam Vital Signs Last Vital Signs Temp 36.5 C 10/07/22 07:12 Pulse 55 L 10/07/22 07:12 Resp 17 10/07/22 07:12 BP 110/71 10/07/22 07:12 Pulse Ox 97 10/07/22 07:12 O2 Del Method Room Air 10/07/22 07:12 Testing Laboratory Results 10/06/22 23:00 10/06/22 23:00 PT 10.2 Seconds (9.0-12.0) 10/06/22 23:00 INR 1.0 (0.9-1.1) 10/06/22 23:00 APTT 27.9 Seconds (21.0-31.0) 10/06/22 23:00 10/07/22 08:53 POC Glucose 104 H
--- NOTE | 2022-10-07 10:49 | Surgery Progress Note ---
Date of Service October 07, 2022 Assessment & Plan (1) Abdominal pain, acute, right upper quadrant: Plan: Her HIDA images and results were personally viewed by myself, no signs of acute cholecystitis We will order an advancing diet and she can be discharged once tolerating It is possible she may have had some sludge not seen on ultrasound or pass to the small bowel which caused her pain She can follow-up with me after her trip to [place] for further evaluation of her abdominal pain Surgery will sign off at this time, please call with any questions or concerns Admission and Anticipated Discharge Date Admission Date: October 07, 2022 Subjective Patient seen and examined. Denies any abdominal pain. Afebrile. Denies any nausea vomiting. Review of Systems Constitutional: no fever and no chills Physical Exam Constitutional: WD/WN, vitals as above Gastrointestinal (Abdomen): Inspection/Auscultation: abdomen normal to ins pection; abdomen not distended Percussion/Palpation: abdomen soft; abdomen nontender, no guarding and no hernia Negative Acosta's Results & Data ([facility]) Vital Signs (Past 12 Hours) Vital Signs Temp Pulse Pulse Pulse Resp BP Pulse Ox 10/07/22 07:12 36.5 C 55 L 17 110/71 97 10/07/22 06:00 36.4 C L 58 L 14 108/69 96 10/07/22 05:28 61 16 124/77 95 10/07/22 04:00 62 18 115/78 93 10/07/22 03:00 69 10/07/22 03:18 74 16 122/82 94 10/07/22 03:16 95 10/07/22 02:40 70 12 123/88 98 10/06/22 23:02 74 O2 Del Method 10/07/22 07:12 Room Air 10/07/22 06:00 Room Air 10/07/22 05:28 Room Air 10/07/22 04:00 Room Air 10/07/22 03:00 10/07/22 03:18 Room Air 10/07/22 03:16 10/07/22 02:40 Room Air 10/06/22 23:02 Diagnostic Findings NUCLEAR HEPATOBILIARY SCAN CLINICAL HISTORY: Right upper quadrant abdominal pain. COMPARISON STUDY: Abdominal ultrasound dated 10/06/2022. TECHNIQUE: Dynamic images of the liver and anterior abdomen were obtained every 5 minutes for a total of 60 minutes following the IV administration of 5.36 mCi of technetium 99m Mebrofenin FINDINGS: The hepatobiliary scan shows prompt and homogeneous hepatic uptake. There is visualized activity within the intra and extrahepatic biliary tree at 10 minutes, and within the gallbladder at 20 minutes. There is normal biliary to bowel transit, with small bowel visualized by 40 minutes. IMPRESSION: Normal nuclear hepatobiliary scan. There is no scintigraphic evidence of cholecystitis. PG Care Time/CCT Total # of Minutes Spent Total Time Spent with Patient: Total time spent is greater than 50% in coordination of care (as documented) at patient's floor/unit and/or counseling patient: Coding Level of Care Code 45181 SUB INP/OBS CARE 09/07MIN Diagnoses Abdominal pain, acute, right upper quadrant R10.11
--- NOTE | 2022-10-07 11:34 | Electrocardiogram Report ---
Test Reason : Blood Pressure : / mmHG Vent. Rate : 065 BPM Atrial Rate : 065 BPM P-R Int : 146 ms QRS Dur : 074 ms QT Int : 394 ms P-R-T Axes : 040 -14 036 degrees QTc Int : 409 ms Normal sinus rhythm Poor R wave progression, consider anterior MN vs. lead placement vs. LVH Abnormal ECG No previous ECGs available Confirmed by Olu Card ([id number]) on 10/07/2022 11:33:35 AM Referred By: REFERRED SELF Confirmed By:Wayne Card
[2022-10-07] MEDS ORDERED: PIPERACILLIN/TAZOBACTAM 4.5 GM in DEXTROSE 5% 100 ML IV SCH (12:00)
--- NOTE | 2022-10-07 13:42 | Discharge Summary ---
Date of Service October 07, 2022 Admission HPI Per Admitting Provider Katerine Avendaño is a pleasant 51-year-old female with history of hypertension, hyperlipidemia, diabetes and well-controlled asthma presenting with acute onset of right upper quadrant pain. Patient had just finished having pizza for dinner around 1900 when she developed sudden onset of right upper quadrant pain with radiation in the epigastrium and through to the back, bandlike across her abdomen. She reports the pain feeling like gas but more severe. She states she was unable to get comfortable. Tried to use a foam roller with no improvement. She did not have nausea or vomiting. No fevers, chills, rigors. No cough or shortness of breath. No history of prior right upper quadrant pain. Patient did have some loose stools earlier in the day but they have resolved. No sick contacts. No family members with similar symptoms In the ER she is afebrile, hypertensive at 180/109 otherwise hemodynamically stable. No respiratory distress. Adequate oxygenation on room air. During my encounter patient's abdominal pain resolved after receiving 25 mcg of IV fentanyl. Patient being seen by surgical team at bedside. ER course: Fentanyl 25 mcg IV Zofran 4 mg IV Principal Diagnosis abd pain, gall bladder sudge Discharge Exam The patient is awake, alert and oriented 3, well developed and well nourished, normocephalic and atraumatic, lying in bed and in no acute distress. HEENT--PERRL, EOMI, mucous membranes and oropharynx mildly dry Neck--supple. No JVD. No bruits. Thyroid normal, trachea midline, no adenopathy. Heart--normal S1 and S2. No murmurs, rubs or gallops. Lungs--clear bilaterally, no respiratory distress, no accessory muscle use. Abdomen--normal bowel sounds and soft. Mild epigastric and left sided abdominal pain Extremities--no cyanosis or clubbing. No edema. Dermatologic--normal skin turgor, normal color, no abnormal lymph nodes, no rash. Neurologic--cranial nerves II through XII grossly intact. Rheumatologic--normal range of motion. Psychiatric--normal affect. Discharge Data Allergies Allergy/AdvReac Type Severity Reaction Status Date / Time bee venom protein (honey bee) Allergy Severe Anaphylaxis Verified 10/07/22 02:02 adhesive Allergy Intermediate REDNESS,ITC Verified 10/07/22 02:02 ENRRIQUE Sulfa (Sulfonamide Allergy Intermediate HIVES Verified 10/07/22 02:02 Antibiotics) Consultations 10/07/22 02:10 Consult General Surgery Routine 10/07/22 02:13 ED Decision to Admit Stat Procedures Performed Operation Date: 10/07/22 09:30 <No data on this case meets the specified criteria> Ordered Studies 10/06/22 23:01 US RUQ [US liver] Urgent Hospital Course (1) Abdominal pain, acute, right upper quadrant: 51-year-old female with history of hypertension, hyperlipidemia, diabetes presenting with acute onset right upper quadrant pain following dinner this evening. No fever, chills, nausea, vomiting. Work-up thus far significant for mild elevation of total bilirubin = 1.1, mild elevation of AST = 66. Liver ultrasound as above with no visible gallstones. Thickened gallbladder wall at 3.7 mm and trace pericholecystic fluid. Common bile duct is normal measuring 4 mm. Troponin = negative at 4.1, EKG with no acute ischemic changes -HIDA scan was normal, no evidence of cholecystitis -Pain had resolved when I evaluated her -She tolerated diet, -Gen surgery signed off (2) Hypertension: Blood pressure elevated upon arrival in setting of acute pain. Now improved to 123/88. We will hold losartan 25 mg p.o. nightly in case of surgical intervention Continue to monitor blood pressure (3) Hyperlipidemia: Chronic. Stable. Continue atorvastatin 10 mg p.o. nightly (4) Diabetes: Patient on metformin 500 mg p.o. twice daily. Insulin sliding scale Goal blood sugar 110-140 Hold metformin for now F/E/NLR at 100 mL/h x 2 L, electrolytes within normal limitscontinue to monitor and replete as needed, n.p.o. for now Ppx:low risk for VTE, will hold on chemoprophylaxis for now. SCDs to bilateral lower extremities. Patient on Pepcid 20 mg p.o. twice dailywill change to IV for now Codefull per discussion with patient Dispositionadmit to medical Plan d/c home Total Time Total Time Spent Total Time Spent (In Minutes): 35 Discharge Plan Discharge Items Patient Disposition: Home - Self-Care Reason For Visit: RUQ PAIN Discharge Diagnosis: Gall bladder sludge Activity: Resume your previous activity Non-emergency contact: Primary Care Provider Call non-emergency contact if: you have any medication questions and your symptoms worsen Follow-up/Referrals: Tavon Bella, [Physician] - (You may follow up with the surgeon after your trip to [place] if you still have concerns regarding your gallbladder) Cori Reaves MD [Primary Care Provider] - Diet: Regular Addtl Attending Provider Instructions: please make appointment to follow up with your regular PCP Pending Studies at Discharge: No Stand-Alone Forms: My [facility] [employer], Smoking Cessation Medications and DC Order Prescriptions: Continued glycopyrrolate 1 mg tablet 1 mg PO QAM losartan 25 mg tablet 25 mg PO HS atorvastatin 10 mg tablet 10 mg PO HS albuterol sulfate 90 mcg/actuation Hfa Aerosol Inhaler 1 puff INHALATION QID PRN (Reason: Wheezing) metformin 500 mg tablet 500 mg PO BIDM famotidine 20 mg Tablet 20 mg PO AMHS Discharge Orders: Discharge Order (Routine); Ordered 10/07/22 Ordered By: Jayla Perry Admission Data Admit Date/Time: 10/07/22 02:10 Attending Provider: Jayla Perry Admit Provider: Kathy Villegas Primary Care Provider: Cori Reaves Other Providers: Tavon Bella ; Kathy Villegas Coding Level of Care Code HOSP INP/OBS DISCH >30 MIN Diagnoses Abdominal pain, acute, right upper quadrant R10.11 Hypertension I10 Hyperlipidemia E78.5 Diabetes E11.9 Time Spent (min) 35
[2022-10-07] MEDS ORDERED: FAMOTIDINE 20 MG TAB PO SCH (21:00)
[2022-10-07] MEDS ORDERED: ATORVASTATIN 10 MG TAB PO SCH (21:00)
== END 2022-10-07 15:05 | disposition home or self-care (01) | DRG 392 ==
LOC: ED 22:43 → 3N 10-07 02:10 → SUATTDRO 10-07 02:10 → INTOOBSV 10-07 02:10 → 3N 10-07 05:33